=== PATIENT | male | born 2000 | race African-American/Black ===

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

== ENCOUNTER 2022-05-08 17:49 | Emergency (ER) | payer SELFPAY | END 2022-05-08 18:35 | disposition home or self-care (01) | LOC: NAV ERS 17:49 | DX: K64.8 Other hemorrhoids (principal) | CPT/HCPCS: 99284 ==

== ENCOUNTER 2022-05-24 20:27 | Emergency (ER) | payer SELFPAY ==
[2022-05-24] MEDS ORDERED: Amoxicillin/Potassium Clav 875 MG TAB ONE (23:14)
[2022-05-24] MEDS ORDERED: Ondansetron ODT 4 MG TAB ONE (23:14)
== END 2022-05-24 23:39 | disposition short-term general hospital (02) ==
LOC: NAV ERS 20:27
DX: S02.32XA Fracture of orbital floor, left side, initial encounter for closed fracture (principal); S02.832A Fracture of medial orbital wall, left side, initial encounter for closed fracture; S43.401A Unspecified sprain of right shoulder joint, initial encounter; X58.XXXA Exposure to other specified factors, initial encounter
CPT/HCPCS: 70450; 70486; Q0162

== ENCOUNTER 2022-11-19 12:15 | Emergency (ER) | payer SELFPAY | END 2022-11-19 13:28 | disposition home or self-care (01) | LOC: NAV ERS 12:15 | DX: H10.9 Unspecified conjunctivitis (principal) | CPT/HCPCS: 99283 ==